=== PATIENT | male | born 1975 | race Two or more races ===

== ENCOUNTER 2024-06-28 08:21 | Outpatient (REF) | payer OTHER, SELFPAY ==
--- NOTE | ~2024-06-28 | XR_ITS ---
EXAMINATION: XR CERVICAL SPINE CLINICAL INFORMATION: Chronic neck pain. COMPARISON: None available. TECHNIQUE: 8 views of the cervical spine, inclusive of flexion and extension views, were obtained. FINDINGS: Vertebral body heights and alignment are normal. The cervical disc spaces are well-maintained. There is mild anterior endplate arthropathy at C6-7. No acute fracture or spondylolisthesis is seen. No significant instability is seen with flexion or extension. The posterior elements are intact. The bilateral neural foramina appear patent on the oblique views. The dens is intact. No prevertebral soft tissue swelling, gas or foreign body is seen. XR/XR cervical spine min 6V IMPRESSION: There is mild anterior endplate arthropathy at C6-7. The examination is otherwise unremarkable. Electronically signed by: Gentry Ronquillo MD 07/22/2024 04:50 PM EDT
== END 2024-06-28 08:22 | disposition home or self-care (01) ==
LOC: HO.XRAY 08:21
PROVIDERS: PCP Physician Assistant Medical; Visit Provider Nurse Practitioner Family
DX: M47.812 Spondylosis without myelopathy or radiculopathy, cervical region (principal); M62.838 Other muscle spasm; M54.2 Cervicalgia
CPT/HCPCS: 72052

== ENCOUNTER 2024-06-28 08:21 | Outpatient (AMB) | payer OTHER, SELFPAY ==
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
[2024-06-28 08:32] VITALS: BP 168/88; O2SAT 98; BMI 30.4
== END 2024-06-28 09:19 | disposition home or self-care (01) ==
PROVIDERS: PCP Physician Assistant Medical; Visit Provider Nurse Practitioner Family
DX: M47.812 Spondylosis without myelopathy or radiculopathy, cervical region (principal); M62.838 Other muscle spasm; M54.2 Cervicalgia; M25.512 Pain in left shoulder
CPT/HCPCS: 99204